=== PATIENT | female | born 1955 | race Caucasian/White ===

== ENCOUNTER → 2016-10-21 | Outpatient (CLI) | payer BC ==
[~2016-10-21] MED LIST: AZIT250T81 PO; CALC600T12 PO; ESCI10TA PO; FERR325T36 PO; MELO7.5T PO; OMEG-58 PO; OMG1KC PO; PRED20TA PO
[2016-10-21 16:46] VITALS: BP 113/65
--- NOTE | 2016-10-21 16:46 | Urgent Care T Sheet Gen (E) ---
Intake General Temperature (Fahrenheit): 99.2 Pulse: 54 Blood Pressure Systolic: 113 Blood Pressure Diastolic: 65 Respirations: 20 SPO2: 98 Description of Symptoms Patient presents with dry, irritated cough x 1 month. States her sinuses started bothering her a few days ago. Notes sinus congestion and pressure. No fever. Been taking NyQuil and Mucinex without much improvement. History of Present Illness Allergies: Coded Allergies: No Known Drug Allergies (Unverified , 06/11/15) Home Meds Active Scripts Prednisone 20 Mg [id number] Mg PO DAILY #8 TAB Prov:IRAIS JONES 10/21/16 Azithromycin (Zithromax Z-Alan)6 Tab/Pkt [id number] Mg PO SEE INSTRUCTIONS #6 TAB Ref 0 Day One: Take 2 tablets by mouth Days Two-Five: Take 1 tablet by mouth Prov:IRAIS JONES 10/21/16 Reported Medications Meloxicam (Mobic)7.5 Mg Tablet7.5 Mg PO DAILY 06/11/15 Escitalopram Oxalate (Lexapro)10 Mg Xsuheo18 Mg PO DAILY 06/11/15 Ferrous Sulfate (Iron)325 Mg [id number] Mg PO DAILY 06/11/15 [place] 3 Polyunsat Fatty Acids (Fish Oil)1,000 Mg Cap1,000 Mg PO DAILY 06/11/15 [place]-3S/Dha/Epa/Fish Oil/D3 (Cardio [place] Benefits Softgel)1 Each Capsule1 Each PO DAILY 06/11/15 Calcium Carbonate (Calcium)600 Mg [id number] Mg PO DAILY 06/11/15 Respiratory Constitutional Symptoms: No syptoms reported EENTM: Nose Congestion Respiratory: CoughNo Short of breath, No Wheezing Cardiovascular: No symptoms reported Gastrointestinal/Abdominal: No symptoms reported All Other Systems Reviewed Remaining Systems: All other systems reviewed with negative findings Past Cixrbbg-Kdutcy-Gwdaco Hx Surgeries/Hospitalizations Hospitalization/Surgery Hx: Colonoscopy csection knee scope oral surgery Respiratory Respiratory History: None Cardiovascular Cardiovascular History: None Neuro/Muscular Neuro/Muscular History: Headache Genitouinary Genitourinary History: Frequency, Nocturia Gastrointestinal GI/Endocrine History: Anemia Diabetes Diabetes: No Integumentary Integumentary History: None Cancer History of Cancer?: No Physical Exam Physical Exam General Appearance: WD/WN No apparent distress Eyes, Ears, Nose, Throat Ex: TMs normal Pharyngeal erythema (irritated with cobblestone appearance.) Other (red, swollen nasal turbinates with thick nasal drainage.) Neck Exam: SuppleNo Lymphadenopathy Respiratory Exam: Lungs clear (dry cough during exam.)No Rhonchi, No Wheezes Departure Urgent Care Impression Impression: Primary Impression: Sinusitis Qualified Code: J01.10 - Acute frontal sinusitis, unspecified Additional Impression: Cough Departure Disposition: HOME OR SELF-CARE Condition: Stable Referrals: Denny Bernard MD (PCP) Additional Instructions: I have started the patient on a Z-pack and Prednisone. [place]. Rest. Fluids I suggested she take some Claritin or Zyrtec while gone. [place] and this may help keep her sinuses clear Patient understands DC instructions. All questions were answered. Scripts Prednisone 20 Mg [id number] Mg PO DAILY #8 TAB Prov:IRAIS JONES 10/21/16 Azithromycin (Zithromax Z-Alan)6 Tab/Pkt [id number] Mg PO SEE INSTRUCTIONS #6 TAB Ref 0 Day One: Take 2 tablets by mouth Days Two-Five: Take 1 tablet by mouth Prov:IRAIS JONES 10/21/16 End of report . IRAIS JONES Oct 21, 2016 10:57
== END ==
LOC: MHUC 10:22
PROVIDERS: ATTEND Physician Assistant
DX: J01.10 Acute frontal sinusitis, unspecified (principal); R05 Cough
CPT/HCPCS: 99213